=== PATIENT | female | born 1980 | race Two or more races ===

== ENCOUNTER 2016-07-26 03:08 | Emergency (ER) | payer MEDICAID ==
[2016-07-26] MEDS ORDERED: LORazepam 2 MG/ML INJ IVP ONE (03:26)
[2016-07-26 03:33] LABS: % IMMATURE GRANULYOCYTES 0.2 % (0.0-1.1); ABSOLUTE IMMATURE GRANULOCYTES 0.02 10^3/uL (0.00-0.10); ADD DIFF? NO; ADD MORPH? NO; ADD SCAN? NO; ATYPICAL LYMPHOCYTE FLAG 20 (0-99); FRAGMENT RBC FLAG 0 (0-99); HEMATOCRIT 44.3 % (38.0-47.0); HEMOGLOBIN 14.8 g/dL (12.6-16.3); LEFT SHIFT FLG 0 (0-99); LIPEMIA HEMOLYSIS FLAG 80 (0-99); MEAN CELL HEMOGLOBIN 27.4 pg (27.9-34.1); MEAN CELL HEMOGLOBIN CONCENTR. 33.4 g/dL (32.4-36.7); MEAN PLATELET VOLUME 10.7 fL (8.7-11.7); PLATELET CLUMPS FLAG 10 (0-99); PLATELET COUNT 341 10^3/uL (150-400); RED CELL DISTRIBUTION WIDTH 14.1 % (11.5-15.2)
[2016-07-26 03:40] LABS: ANION GAP 15 mEq/L (8-16); CALCIUM 9.8 mg/dL (8.5-10.4); CARBON DIOXIDE 23 mEq/l (22-31); CHLORIDE 103 mEq/L (97-110); CREATININE 0.8 mg/dL (0.6-1.0); GLOMERULAR FILTRATION RATE > 60; GLUCOSE 91 mg/dL (70-100); POTASSIUM 4.5 mEq/L (3.5-5.2); SODIUM 141 mEq/L (134-144)
[2016-07-26] MEDS ORDERED: NS 1,000 ML IV ONE (03:40)
[2016-07-26 03:46] LABS: COLOR COLORLESS; LEUKOCYTE ESTERASE,URINE NEGATIVE (NEGATIVE); NITRITE,URINE NEGATIVE (NEGATIVE)
--- NOTE | 2016-07-26 04:17 | EDPHY ---
HPI/HX/ROS/PE/MDM Narrative: Chief complaint: Weakness , lightheadedness and malaise HPI: 35-year-old woman presenting with worsening generalized malaise, lightheadedness and nausea. Symptoms began progressing over the evening. She has had some nausea with vomiting. No diarrhea. No chest pain shortness of breath. No abdominal pain. No fevers or chills. Does have a history of similar episode in the past when she was told she was dehydrated. No recent travel. Does not drink alcohol. No smoking. No drug use. She was given 4 mg of Zofran by EMS with some relief. She is not vertiginous. ROS: 10 point Review of Systems is negative except as noted in the HPI. Physical exam: Gen: Awake, Alert, No Distress HEENT: Nose: no rhinorrhea Eyes: PERRLA, EOMI, she has no nystagmus. She has a negative Otis-Hallpike. Mouth: Moist mucosa Neck: Supple, no JVD Chest: nontender, lungs clear to auscultation Heart: S1, S2 normal, no murmur Abd: Soft, non-tender, no guarding Back: no CVA tenderness, no midline tenderness Ext: no edema, non-tender Skin: no rash Neuro: CN II-XII intact, Sensation grossly intact, Strength 5/5 in bilateral upper and lower extremities ED Course: 35-year-old with weakness dehydration and malaise. She has no focal neurologic findings. She has no nystagmus. She has not have any vertiginous symptoms. She is improved with some fluids and Zofran. Will give her little bit of Ativan for her nausea and check bloods and urine. - Data Points Laboratory Results: Laboratory Results 07/26/16 03:00 07/26/16 03:00 07/26/16 07/26/16 03:25 03:00 WBC 8.72 10^3/uL (3.80-9.50) RBC 5.40 H 10^6/uL (4.18-5.33) Hgb 14.8 g/dL (12.6-16.3) Hct 44.3 % (38.0-47.0) MCV 82.0 fL (81.5-99.8) MCH 27.4 L pg (27.9-34.1) MCHC 33.4 g/dL (32.4-36.7) RDW 14.1 % (11.5-15.2) Plt Count 341 10^3/uL (150-400) MPV 10.7 fL (8.7-11.7) Neut % (Auto) 33.3 L % (39.3-74.2) Lymph % (Auto) 57.2 H % (15.0-45.0) [place] % (Auto) 5.6 % (4.5-13.0) Eos % (Auto) 3.0 % (0.6-7.6) Baso % (Auto) 0.7 % (0.3-1.7) Nucleat RBC Rel Count 0.0 % (0.0-0.2) Absolute Neuts (auto) 2.90 10^3/uL (1.70-6.50) Absolute Lymphs (auto) 4.99 H 10^3/uL (1.00-3.00) Absolute Monos (auto) 0.49 10^3/uL (0.30-0.80) Absolute Eos (auto) 0.26 10^3/uL (0.03-0.40) Absolute Basos (auto) 0.06 10^3/uL (0.02-0.10) Absolute Nucleated RBC 0.00 10^3/uL (0-0.01) Immature Gran % 0.2 % (0.0-1.1) Immature Gran # 0.02 10^3/uL (0.00-0.10) Sodium 141 mEq/L (134-144) Potassium 4.5 mEq/L (3.5-5.2) Chloride 103 mEq/L (97-110) Carbon Dioxide 23 mEq/l (22-31) Anion Gap 15 mEq/L (8-16) BUN 11 mg/dL (7-23) Creatinine 0.8 mg/dL (0.6-1.0) Estimated GFR > 60 Glucose 91 mg/dL (70-100) Calcium 9.8 mg/dL (8.5-10.4) Urine Color COLORLESS Urine Appearance CLEAR Urine pH 7.0 (5.0-7.5) Ur Specific Albin 1.002 (1.002-1.030) Urine Protein NEGATIVE (NEGATIVE) Urine Ketones TRACE H (NEGATIVE) Urine Blood NEGATIVE (NEGATIVE) Urine Nitrate NEGATIVE (NEGATIVE) Urine Bilirubin NEGATIVE (NEGATIVE) Urine Urobilinogen NEGATIVE EU (0.2-1.0) Ur Leukocyte Esterase NEGATIVE (NEGATIVE) Urine Glucose NEGATIVE (NEGATIVE) Urine Test NEGATIVE Medications Given: Discontinued Medications Sodium Chloride (Ns) 1,000 mls @ 0 mls/hr IV ONCE ONE PRN Reason: Wide Open Stop: 07/26/16 03:41 Last Admin: 07/26/16 03:49 Dose: 1,000 mls Lorazepam (Ativan Injection) 1 mg IVP EDNOW ONE Stop: 07/26/16 03:27 Last Admin: 07/26/16 03:41 Dose: 1 mg General Time Seen by Provider: 07/26/16 03:23 Initial Vital Signs: Initial Vital Signs Temperature (C) 36.6 C 07/26/16 03:19 Heart Rate 72 07/26/16 03:19 Respiratory Rate 16 07/26/16 03:19 Blood Pressure 111/87 H 07/26/16 03:19 O2 Sat (%) 100 07/26/16 03:19 O2 Delivery Mode Room Air O2 (L/minute) 2 Allergies/Adverse Reactions: Penicillins Allergy (Verified 07/26/16 03:19) Home Medications: Medication Instructions Recorded NK [No Known Home Meds] 06/15/15 Departure - Departure Disposition: Home, Routine, Self-Care Clinical Impression: Viral illness, Dehydration Condition: Good Instructions: Dehydration (ED), Viral Syndrome (ED) Additional Instructions: Follow up with primary care doctor in 2-3 days for re-evaluation. Return to the emergency department for increasing fevers, chills, nausea, vomiting, chest pain, shortness breath, or any other concerns. Referrals: [place],. [Primary Care Provider] - As per Instructions
[2016-07-26 06:38] VITALS: BP 114/80; PULSE 70; RESP 20; TEMP 97.7; O2SAT 99
== END 2016-07-26 06:38 | disposition home or self-care (01) ==
LOC: EDUNIT#
DX: B34.9 Viral infection, unspecified (principal); E86.0 Dehydration
CPT/HCPCS: 96374

== ENCOUNTER 2016-10-05 00:52 | Emergency (ER) | payer MEDICAID ==
[2016-10-05 00:58] VITALS: TEMP 97.9
--- NOTE | 2016-10-05 01:30 | EDPHY ---
H & P Stated Complaint: nausea, l facial pain Time Seen by Provider: 10/05/16 01:17 HPI/ROS: Chief Complaint: Headache, nausea, dizzy HPI: 35-year-old woman past medical history migraine headaches presenting with a headache which started gradually. Pain is on the left side of her head behind her left eye is similar to her prior migraine headaches. This is a bit different because you typically her migraines go away with ibuprofen and this 1 has not. She also she typically gets an aura with her migraines and she did not this time. This is not the worst headache of her life. It is currently about an 8/10. Some nausea no vomiting. Id was feeling dizzy earlier but this gotten better. She denies any photophobia at this time. No neck pain or stiffness. No recent illness. ROS: 10 point Review of Systems is negative except as noted in the HPI. PMH: Migraine headaches, GERD Medications: Omeprazole Allergies: Penicillin Social History: No smoking, no alcohol, no recreational drug use Family History: non-contributory Physical Exam: Gen: Awake, Alert, No Distress HEENT: Nose: no rhinorrhea Eyes: PERRLA, EOMI Mouth: Moist mucosa Neck: Supple, no JVD Chest: nontender, lungs clear to auscultation Heart: S1, S2 normal, no murmur Abd: Soft, non-tender, no guarding Back: no CVA tenderness, no midline tenderness Ext: no edema, non-tender Skin: no rash Neuro: CN II-XII intact, Sensation grossly intact, Strength 5/5 in bilateral upper and lower extremities - Personal History LMP (Females 10-55): Now Current Tetanus Diphtheria and Acellular Pertussis (TDAP): Unsure - Medical/Surgical History Hx Asthma: No Hx Chronic Respiratory Disease: No Hx Diabetes: No Hx Cardiac Disease: No Hx Renal Disease: No Hx Cirrhosis: No Hx Alcoholism: No Hx HIV/AIDS: No Hx Splenectomy or Spleen Trauma: No Other PMH: anxiety attacks. seizure? gi issues - Social History Smoking Status: Former smoker Constitutional: Initial Vital Signs Temperature (C) 36.6 C 10/05/16 00:56 Heart Rate 83 10/05/16 00:56 Respiratory Rate 16 10/05/16 00:56 Blood Pressure 123/95 H 10/05/16 00:56 O2 Sat (%) 99 10/05/16 00:56 O2 Delivery Mode Room Air Allergies/Adverse Reactions: Penicillins Allergy (Verified 07/26/16 03:19) Home Medications: Medication Instructions Recorded NK [No Known Home Meds] 06/15/15 Medical Decision Making ED Course/Re-evaluation: Patient states her headache is significantly improved. She is asking to go home. - Data Points Medications Given: Discontinued Medications Dexamethasone (Decadron Injection) 10 mg IVP EDNOW ONE Stop: 10/05/16 01:34 Last Admin: 10/05/16 01:50 Dose: 10 mg Diphenhydramine HCl (Benadryl Injection) 25 mg IVP EDNOW ONE Stop: 10/05/16 01:34 Last Admin: 10/05/16 01:54 Dose: 25 mg Haloperidol Lactate (Haldol Injection) 2.5 mg IVP EDNOW ONE Stop: 10/05/16 01:34 Last Admin: 10/05/16 01:57 Dose: 2.5 mg Departure - Departure Disposition: Home, Routine, Self-Care Clinical Impression: Migraine headache Condition: Good Instructions: Migraine Headache (ED) Additional Instructions: Return to the emergency depart for increasing headache, controlled nausea or vomiting, fevers, chills, or any other concerns. Follow up with primary care physician in 3-4 days if you're still having headaches. Referrals: [facility] [Other] - As per Instructions
[2016-10-05] MEDS ORDERED: DEXAMETHASONE 10 MG/ML VIAL IVP ONE (01:33)
[2016-10-05] MEDS ORDERED: HALOPERIDOL LACT 5 MG/ML INJ IVP ONE (01:33)
[2016-10-05 02:27] VITALS: BP 116/77; PULSE 88; RESP 14; O2SAT 97
== END 2016-10-05 02:31 | disposition home or self-care (01) ==
DX: G43.909 Migraine, unspecified, not intractable, without status migrainosus (principal); Z87.891 Personal history of nicotine dependence
CPT/HCPCS: 96374; J1200

== ENCOUNTER 2017-07-15 10:27 | Emergency (ER) | payer MEDICAID ==
[2017-07-15 10:32] VITALS: TEMP 98.1
--- NOTE | 2017-07-15 10:41 | EDPHY ---
H & P Stated Complaint: migraine Time Seen by Provider: 07/15/17 10:40 HPI/ROS: HPI: This is a 36-year-old female who presents with Chief Complaint: Migraine Location: Head Quality: Migraine Duration: 45 min prior to arrival Signs and Symptoms:+ photophobia, + noise sensitivity, + nausea, no vomiting, no neck stiffness, no fever, no visual changes, +aura Timing: Sudden, constant Severity: Moderate Context: Patient reports that she has a history of migraine headaches that was diagnosed at age 7. Her triggers tend to be stress. Patient presents with complaints of right sikhism/forehead headache that is described as moderate in nature, not worst ever, constant, nonradiating that started upon waking the up this morning. Her last menstrual period was 1 week ago. She reports that she felt fine yesterday and was having a normal day. She has not eaten or drank anything today. She denies fever/neck stiffness/ear pain/sinus pressure/nasal congestion. She reports that this headache feels like her typical migraines. She has tried no [id number] medications. She is not on any basal or abortive medications for migraines. Modifying Factors: None Comment: ROS: see HPI Constitutional: No fever, no chills, no weight loss Eyes: No blurred vision Respiratory: No shortness of breath, no cough Cardiovascular: No chest pain Gastrointestinal: No nausea, no vomiting, no diarrhea Genitourinary: No dysuria Extremities: No myalgias Neurologic: No weakness, no numbness Skin: No rashes Hematologic: No bruising, no bleeding MEDICAL/SURGICAL/SOCIAL HISTORY: Medical history: anxiety attacks. seizure? GERD, migraines Surgical history: Denies Social history: Employed. CONSTITUTIONAL: Nontoxic appearing female, awake and alert, no obvious distress HEENT: Atraumatic and normocephalic, PERRL, EOMI. No nystagmus. Tympanic membranes clear. Oropharynx clear, no exudate and moist pink mucosa. Airway patent. No lymphadenopathy. No meningismus. Cardiovascular: Normal S1/S2, regular rate, regular rhythm, without murmur rub or gallop. PULMONARY/CHEST: Symmetrical and nontender. Clear to auscultation bilaterally. Good air movement. No accessory muscle usage. ABDOMEN: Soft, nondistended, nontender, no rebound, no guarding, no peritoneal signs, no masses or organomegaly. No CVAT. EXTREMITIES: 2/2 pulses, strength 5/5, no deformities, no clubbing, no cyanosis or edema. NEUROLOGICAL: no focal neuro deficits. GCS 15. SKIN: Warm and dry, no erythema. no rash. Good capillary refill. Source: Patient, Family Exam Limitations: No limitations - Personal History Current Tetanus/Diphtheria Vaccine: Unsure Current Tetanus Diphtheria and Acellular Pertussis (TDAP): Unsure - Medical/Surgical History Hx Asthma: No Hx Chronic Respiratory Disease: No Hx Diabetes: No Hx Cardiac Disease: No Hx Renal Disease: No Hx Cirrhosis: No Hx Alcoholism: No Hx HIV/AIDS: No Hx Splenectomy or Spleen Trauma: No Other PMH: anxiety attacks. seizure? gi issues. migraines - Social History Smoking Status: Former smoker Constitutional: Initial Vital Signs Temperature (C) 36.7 C 07/15/17 10:30 Heart Rate 90 07/15/17 10:30 Respiratory Rate 17 07/15/17 10:30 Blood Pressure 125/88 H 07/15/17 10:30 O2 Sat (%) 99 07/15/17 10:30 O2 Delivery Mode Room Air Allergies/Adverse Reactions: Penicillins Allergy (Verified 07/15/17 10:30) Home Medications: Medication Instructions Recorded Acet/Caffeine/Buta Fioricet 1 each PO Q6 PRN #12 tab 07/15/17 [Fioricet (*)] Pepcid 07/15/17 Medical Decision Making ED Course/Re-evaluation: Vital signs reviewed upon arrival and no systemic signs. Migraine is typical for patient. No indication for CT imaging of head. Given 1 L normal saline, IV Decadron, IV Haldol, IV Benadryl complete relief of symptoms. Patient monitored in the emergency room for 2 hr and asked to be discharged home as she was feeling better. 1225: Reassessed patient who reports that headache has substantially decreased but she still has an aura. Given IV Benadryl and IV Toradol. 1325: Reassessed patient who reports that all symptoms have resolved. Requesting to be discharged home This patient was seen under the supervision of my secondary supervising physician. I evaluated care for this patient independently. Discussed this patient with Dr. Harden who did not see the patient. Differential Diagnosis: Headache including but not limited to subarachnoid hemorrhage, migraine headache , tension headache and infectious causes such as meningitis, pharyngitis and sinusitis. - Data Points Medications Given: Discontinued Medications Dexamethasone (Decadron Injection) 10 mg IVP EDNOW ONE Stop: 07/15/17 10:47 Last Admin: 07/15/17 10:54 Dose: 10 mg Diphenhydramine HCl (Benadryl Injection) 25 mg IVP EDNOW ONE Stop: 07/15/17 10:47 Last Admin: 07/15/17 10:54 Dose: 25 mg Diphenhydramine HCl (Benadryl Injection) 50 mg IVP EDNOW ONE Stop: 07/15/17 12:29 Last Admin: 07/15/17 13:03 Dose: Not Given Haloperidol Lactate (Haldol Injection) 2.5 mg IVP EDNOW ONE Stop: 07/15/17 10:48 Last Admin: 07/15/17 10:54 Dose: 2.5 mg Sodium Chloride (Ns) 1,000 mls @ 0 mls/hr IV EDNOW ONE; Wide Open PRN Reason: Protocol Stop: 07/15/17 10:47 Last Admin: 07/15/17 10:53 Dose: 1,000 mls Ketorolac Tromethamine (Toradol) 30 mg IVP EDNOW ONE Stop: 07/15/17 12:29 Last Admin: 07/15/17 13:04 Dose: Not Given Departure - Departure Disposition: Home, Routine, Self-Care Clinical Impression: Migraine headache with aura Qualifiers: Status migrainosus presence: without status migrainosus Intractability: not intractable Qualified Code(s): G43.109 - Migraine with aura, not intractable, without status migrainosus Condition: Good Instructions: Migraine Headache (ED) Additional Instructions: Please rest as much as possible today and drink plenty of fluids until you are feeling better. Please establish care with Neurology to discuss migraine diagnosis and medications. Referrals: [facility] [Other] - As per Instructions Isaac Dash MD [Medical Doctor] - As per Instructions Prescriptions: Acet/Caffeine/Buta Fioricet [Fioricet (*)] 1 each PO Q6 PRN #12 tab PRN Reason: Headache
[2017-07-15] MEDS ORDERED: NS 1,000 ML IV ONE (10:46)
[2017-07-15] MEDS ORDERED: DEXAMETHASONE 10 MG/ML VIAL IVP ONE (10:46)
[2017-07-15] MEDS ORDERED: HALOPERIDOL LACT 5 MG/ML INJ IVP ONE (10:47)
[2017-07-15 12:17] VITALS: RESP 16; O2SAT 97
[2017-07-15] MEDS ORDERED: KETOROLAC 30 MG/1 ML SDV IVP ONE (12:28)
[2017-07-15 13:11] VITALS: BP 141/89; PULSE 90
== END 2017-07-15 13:09 | disposition home or self-care (01) ==
DX: G43.109 Migraine with aura, not intractable, without status migrainosus (principal); E86.9 Volume depletion, unspecified; Z87.891 Personal history of nicotine dependence
CPT/HCPCS: 96374; J1100; J1200; J1630

== ENCOUNTER 2017-09-01 12:49 | Emergency (ER) | payer MEDICAID ==
[2017-09-01 12:59] VITALS: RESP 16; TEMP 97.9
[2017-09-01] MEDS ORDERED: NS 1,000 ML IV ONE (13:16)
--- NOTE | 2017-09-01 13:26 | EDPHY ---
H & P Stated Complaint: 10 days diarrhea/now bloody and n/v Time Seen by Provider: 09/01/17 13:15 HPI/ROS: CHIEF COMPLAINT: Diarrhea , abdominal cramping times 10 days HISTORY OF PRESENT ILLNESS: 36-year-old female generally healthy, no history of abdominal surgeries, no history of international travel or untreated water sources, history of recent antibiotics complaining of 10 days of intermittent abdominal cramping, diarrhea with reddish appearance in the past few days. She notes that when she eats something she will shortly thereafter develop diarrhea. No vomiting. No chest pain. No back or flank pain. No fever no chills. PRIMARY CARE PROVIDER:[facility] REVIEW OF SYSTEMS: A ten point review of systems was performed and is negative with the exception of the items mentioned in the HPI PAST MEDICAL & SURGICAL HISTORY: no history of abdominal surgeries SOCIAL HISTORY:Nonsmoker PHYSICAL EXAM (Prior to examination, patient consented to physical exam, hands were washed and my usual and customary physical exam procedures followed) 1) GENERAL: Well-developed, well-nourished, alert and oriented. Appears to be in no acute distress. 2) HEAD: Normocephalic, atraumatic 3) HEENT: Pupils equal, round, reactive to light bilaterally. Sclera anicteric. Nasopharynx, oropharynx, clear, no lesions. Dry mucous membranes Ears bilaterally with normal tympanic membranes. 4) NECK: Full range of motion, no meningeal signs. 5) LUNGS: Clear auscultation bilaterally, no wheezes, no rhonchi, no retractions. 6) HEART: Regular rate and rhythm, no murmur, no heave, no gallop. 7) ABDOMEN: No guarding, no rebound, no focal tenderness, negative McBurney's, negative Sampson's, negative Rovsing's, negative peritoneal sign, 8) MUSCULOSKELETAL: Moving all extremities, no focal areas of tenderness, no obvious trauma. No peripheral edema or discoloration. 9) BACK: No CVA tenderness, no midline vertebral tenderness, no fluctuance, no step-off, no obvious trauma, no visual or palpable abnormality. 10) SKIN: No rash, no petechiae. 11) Psychiatric: Patient is oriented X 3, there is no agitation. DIFFERENTIAL DIAGNOSIS: In no particular include but limited to infectious diarrhea, functional diarrhea, acute appendicitis, GI bleed - Personal History LMP (Females 10-55): 1-7 Days Ago Current Tetanus/Diphtheria Vaccine: Unsure - Medical/Surgical History Hx Asthma: No Hx Chronic Respiratory Disease: No Hx Diabetes: No Hx Cardiac Disease: No Hx Renal Disease: No Hx Cirrhosis: No Hx Alcoholism: No Hx HIV/AIDS: No Hx Splenectomy or Spleen Trauma: No Other PMH: anxiety attacks. seizure? gi issues. migraines - Social History Smoking Status: Former smoker Constitutional: Initial Vital Signs Temperature (C) 36.6 C 09/01/17 12:56 Heart Rate 88 09/01/17 12:56 Respiratory Rate 16 09/01/17 12:56 Blood Pressure 99/87 H 09/01/17 12:56 O2 Sat (%) 98 09/01/17 12:56 O2 Delivery Mode Room Air Allergies/Adverse Reactions: Penicillins Allergy (Verified 09/01/17 12:55) Home Medications: Medication Instructions Recorded Acet/Caffeine/Buta Fioricet 1 each PO Q6 PRN #12 tab 07/15/17 [Fioricet (*)] Pepcid 07/15/17 Medical Decision Making ED Course/Re-evaluation: 3:00 p.m.: Patient noted to have elevated LFTs. Informs me at this time that when she was a child she had hepatitis a. . Hepatitis panel will be added and this will need to be followed up by her PCP at the [facility]. 3:13 p.m.: Patient able to provide a stool sample which was sent to the lab at this time. I re-evaluated the patient at this time, abdomen is soft no guarding no rebound. Doubt acute surgical abdominal pathology. 4:14 p.m.: Patient was re-evaluated. Her GI pathogen panel was pending. Occult blood feces is positive. GI pathogen panel is pending , informed laboratory that this will take several more hours. I re-examined her abdomen which is soft no guarding no rebound. At this time I think that acute surgical abdominal pathology acute appendicitis, acute cholecystitis, less than likely in this patient. I do not think that imaging studies are indicated at this time. Patient will be discharged. Will hold on antibiotics at this time until GI pathogen study returned. Care of patient under supervision of [secondary] supervising physician Dr Ley with whom I discussed care.. - Data Points Laboratory Results: Laboratory Results 09/01/17 13:20 09/01/17 13:20 09/01/17 09/01/17 09/01/17 15:10 14:02 13:20 WBC RBC Hgb Hct MCV MCH MCHC RDW Plt Count MPV Neut % (Auto) Lymph % (Auto) [place] % (Auto) Eos % (Auto) Baso % (Auto) Nucleat RBC Rel Count Absolute Neuts (auto) Absolute Lymphs (auto) Absolute Monos (auto) Absolute Eos (auto) Absolute Basos (auto) Absolute Nucleated RBC Immature Gran % Immature Gran # Sodium Potassium Chloride Carbon Dioxide Anion Gap BUN Creatinine Estimated GFR Glucose Calcium Total Bilirubin Conjugated Bilirubin Unconjugated Bilirubin AST ALT Alkaline Phosphatase Total Protein Albumin Lipase Beta HCG, Qual NEGATIVE Stool Occult Bld Scrn POSITIVE H (NEGATIVE) Hepatitis A IgM Ab Pending Hep Bs Antigen Pending Hep B Core IgM Ab Pending Hepatitis C Antibody Pending 09/01/17 09/01/17 13:20 13:20 WBC 7.62 10^3/uL 10^3/uL (3.80-9.50) RBC 5.12 10^6/uL 10^6/uL (4.18-5.33) Hgb 12.8 g/dL g/dL (12.6-16.3) Hct 39.8 % % (38.0-47.0) MCV 77.7 fL L fL (81.5-99.8) MCH 25.0 pg L pg (27.9-34.1) MCHC 32.2 g/dL L g/dL (32.4-36.7) RDW 15.8 % H % (11.5-15.2) Plt Count 432 10^3/uL H 10^3/uL (150-400) MPV 9.9 fL fL (8.7-11.7) Neut % (Auto) 54.7 % % (39.3-74.2) Lymph % (Auto) 34.1 % % (15.0-45.0) [place] % (Auto) 7.6 % % (4.5-13.0) Eos % (Auto) 2.4 % % (0.6-7.6) Baso % (Auto) 0.8 % % (0.3-1.7) Nucleat RBC Rel Count 0.0 % % (0.0-0.2) Absolute Neuts (auto) 4.17 10^3/uL 10^3/uL (1.70-6.50) Absolute Lymphs (auto) 2.60 10^3/uL 10^3/uL (1.00-3.00) Absolute Monos (auto) 0.58 10^3/uL 10^3/uL (0.30-0.80) Absolute Eos (auto) 0.18 10^3/uL 10^3/uL (0.03-0.40) Absolute Basos (auto) 0.06 10^3/uL 10^3/uL (0.02-0.10) Absolute Nucleated RBC 0.00 10^3/uL 10^3/uL (0-0.01) Immature Gran % 0.4 % % (0.0-1.1) Immature Gran # 0.03 10^3/uL 10^3/uL (0.00-0.10) Sodium 138 mEq/L mEq/L (135-145) Potassium 4.1 mEq/L mEq/L (3.5-5.2) Chloride 106 mEq/L mEq/L (97-110) Carbon Dioxide 22 mEq/l mEq/l (22-31) Anion Gap 10 mEq/L mEq/L (8-16) BUN 6 mg/dL L mg/dL (7-23) Creatinine 0.8 mg/dL mg/dL (0.6-1.0) Estimated GFR > 60 Glucose 89 mg/dL mg/dL (70-100) Calcium 9.4 mg/dL mg/dL (8.5-10.4) Total Bilirubin 0.6 mg/dL mg/dL (0.1-1.4) Conjugated Bilirubin 0.2 mg/dL mg/dL (0.0-0.5) Unconjugated Bilirubin 0.4 mg/dL mg/dL (0.0-1.1) AST 128 IU/L H IU/L (14-46) ALT 188 IU/L H IU/L (9-52) Alkaline Phosphatase 364 IU/L H IU/L (38-126) Total Protein 7.7 g/dL g/dL (6.3-8.2) Albumin 4.3 g/dL g/dL (3.5-5.0) Lipase 105 IU/L IU/L (23-300) Beta HCG, Qual Stool Occult Bld Scrn Hepatitis A IgM Ab Hep Bs Antigen Hep B Core IgM Ab Hepatitis C Antibody Medications Given: Discontinued Medications Sodium Chloride (Ns) 1,000 mls @ 0 mls/hr IV ONCE ONE PRN Reason: Wide Open Stop: 09/01/17 13:17 Last Admin: 09/01/17 13:26 Dose: 1,000 mls Departure - Departure Disposition: Home, Routine, Self-Care Clinical Impression: Volume depletion Diarrhea Qualifiers: Diarrhea type: unspecified type Qualified Code(s): R19.7 - Diarrhea, unspecified Condition: Good Instructions: Acute Diarrhea (ED) Additional Instructions: Seek immediate medical attention if you develop new or worsening symptoms, if you develop fevers, chills, inability to tolerate oral intake or any other symptoms that concerns you. Referrals: Earnestine Berry PA [Primary Care Provider] - 09/03/17
[2017-09-01 13:30] LABS: PLATELET COUNT 432 10^3/uL (150-400)
[2017-09-01 16:52] VITALS: BP 133/87; PULSE 87; O2SAT 99
[2017-09-03 02:45] LABS: HEPATITIS B SURFACE ANTIGEN NEGATIVE (NEGATIVE)
[2017-09-03 02:52] LABS: HEPATITIS A ANTIBODY IGM (BCH) NEGATIVE (NEGATIVE); HEPATITIS B CORE AB IGM NEGATIVE (NEGATIVE)
[2017-09-03 03:03] LABS: HEPATITIS C ANTIBODY TOTAL NEGATIVE (NEGATIVE)
== END 2017-09-01 16:52 | disposition home or self-care (01) ==
DX: R19.7 Diarrhea, unspecified (principal); E86.9 Volume depletion, unspecified; Z87.891 Personal history of nicotine dependence
CPT/HCPCS: G0472

== ENCOUNTER 2017-12-15 19:56 | Emergency (ER) | payer MEDICAID ==
[2017-12-15] MEDS ORDERED: ONDANSETRON 4 MG/2 ML VIAL ONE (20:09)
[2017-12-15] MEDS ORDERED: HYDROmorphONE/DILAUDID 1 MG/ML INJ ONE (20:09)
[2017-12-15] MEDS ORDERED: NS 1,000 ML IV ONE (20:12)
[2017-12-15] MEDS ORDERED: HYDROmorphONE/DILAUDID 1 MG/ML INJ IVP ONE ×2 (20:12→20:15)
[2017-12-15] MEDS ORDERED: ONDANSETRON 4 MG/2 ML VIAL IVP ONE ×2 (20:17→21:58)
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
[2017-12-15] MEDS ORDERED: PROPOFOL 200 MG/20 ML VIAL ONE (20:31)
[2017-12-15] MEDS ORDERED: KETAMINE 200 MG/20 ML VIAL ONE (20:31)
[2017-12-15] MEDS ORDERED: OXYCODONE/APAP 5/325MG PREPACK#4 BTL TAKEHOME ONE (21:07)
[2017-12-15] MEDS ORDERED: HYDROmorphONE/DILAUDID 2 MG/ML INJ IVP ONE (21:28)
[2017-12-15 22:09] VITALS: BP 122/85
== END 2017-12-15 22:23 | disposition home or self-care (01) ==
PROC: 0HDLXZZ Extraction of Left Lower Leg Skin, External Approach (ICD-10-PCS; principal; 2017-12-15)
DX: T21.15XA Burn of first degree of buttock, initial encounter (principal); T25.222A Burn of second degree of left foot, initial encounter; T31.0 Burns involving less than 10% of body surface; E86.9 Volume depletion, unspecified; Z87.891 Personal history of nicotine dependence; X10.0XXA Contact with hot drinks, initial encounter
CPT/HCPCS: 96374; J1170; J2405; J2704

== ENCOUNTER 2017-12-31 12:24 | Emergency (ER) | payer MEDICAID ==
[2017-12-31] MEDS ORDERED: fentaNYL 100 MCG/2 ML INJ IVP ONE (13:18)
[2017-12-31] MEDS ORDERED: KETOROLAC 30 MG/1 ML SDV IVP ONE (13:18)
[2017-12-31] MEDS ORDERED: LORazepam 2 MG/ML INJ IVP ONE (13:18)
[2017-12-31] MEDS ORDERED: NS 1,000 ML IV ONE (13:18)
[2017-12-31] MEDS ORDERED: DEXAMETHASONE 10 MG/ML VIAL IVP ONE (13:18)
[2017-12-31] MEDS ORDERED: ONDANSETRON 4 MG/2 ML VIAL IVP ONE (13:18)
--- NOTE | 2017-12-31 13:22 | EDPHY ---
H & P Time Seen by Provider: 12/31/17 13:15 HPI/ROS: CHIEF COMPLAINT: "Migraine" HISTORY OF PRESENT ILLNESS: The patient is a 37-year-old female with a history of migraines who presents emergency department with a typical migraine headache starting at 11:35 a.m. This morning. She took her home medication with no relief. She continues to complain of a frontal headache. She has had nausea but no vomiting. No weakness or numbness. Patient did have visual change prior to the onset of her headache. This is typical for migraine headache. She has had no neck pain. No recent falls or trauma. No fevers or chills. REVIEW OF SYSTEMS: My complete review of systems is negative except as mentioned in the HPI. Past Medical/Surgical History: Includes migraine, seizure, anxiety Social History: The patient does not smoke Smoking Status: Former smoker Physical Exam: Vitals noted. Afebrile GENERAL: Mild acute distress, alert. Anxious HEENT: Eyes normal to inspection, normal pharynx, no signs of dehydration. NECK: [No thyromegaly, no lymphadenopathy, supple. RESPIRATORY: Clear to auscultation bilaterally, no rales, rhonchi or wheezing. CVS: Regular rate and rhythm, no rubs, murmurs, or gallops. ABDOMEN: Soft, nontender, nondistended, no organomegaly. BACK: Normal to inspection, no CVA tenderness. SKIN: Normal color, no rash, warm, dry. No pallor. EXTREMITIES: No pedal edema, no calf tenderness, no Homans sign or cords, no joint swelling. NEURO/PSYCH: Higher functions: Alert and Oriented x3. Normal speech and cognition. Anxious. Cranial nerves: Normal as tested. Cerebellar: Normal as tested. Good finger to nose, good [id number], normal gait. Peripheral exam: Normal motor exam. Normal sensation. Normal reflexes. Constitutional: Initial Vital Signs Temperature (C) 37 C 12/31/17 12:25 Heart Rate 80 12/31/17 12:25 Respiratory Rate 16 12/31/17 12:25 Blood Pressure 144/88 H 12/31/17 12:25 O2 Sat (%) 100 12/31/17 12:25 O2 Delivery Mode Room Air Allergies/Adverse Reactions: Penicillins Allergy (Verified 09/01/17 12:55) Home Medications: Medication Instructions Recorded Citalopram 12/15/17 Omeprazole 12/15/17 oxyCODONE/APAP 5/325 [Percocet 1 - 2 tab PO Q4H PRN #20 tab 12/15/17 5/325 (*)] Medical Decision Making ED Course/Re-evaluation: In the emergency department I discussed possible etiologies with the patient. I answered all her questions. IV was placed. Patient was given Decadron 10 mg IV, Zofran 4 mg IV, fentanyl 50 mcg IV and Toradol 30 mg IV for her headache and nausea. I do not feel the patient needs imaging at this time. Patient reports that she had a negative CT and MRI previously during workup for migraine. Recheck patient numerous occasions. On repeat exam she had a normal neuro exam. No focal deficits. 1445: Patient is doing well. Her headache has improved. No focal deficits. Differential Diagnosis: My differential includes but is not limited to headache, migraine, subarachnoid hemorrhage, subdural hematoma, epidural hematoma, ischemic CVA, hemorrhagic CVA , dissection - Data Points Medications Given: Discontinued Medications Dexamethasone (Decadron Injection) 10 mg IVP EDNOW ONE Stop: 12/31/17 13:19 Last Admin: 12/31/17 13:26 Dose: 10 mg Fentanyl (Sublimaze) 50 mcg IVP EDNOW ONE Stop: 12/31/17 13:19 Last Admin: 12/31/17 13:26 Dose: 50 mcg Sodium Chloride (Ns) 1,000 mls @ 0 mls/hr IV ONCE ONE; Wide Open PRN Reason: Protocol Stop: 12/31/17 13:19 Last Admin: 12/31/17 13:24 Dose: 1,000 mls Ketorolac Tromethamine (Toradol) 30 mg IVP EDNOW ONE Stop: 12/31/17 13:19 Last Admin: 12/31/17 13:25 Dose: 30 mg Lorazepam (Ativan Injection) 1 mg IVP EDNOW ONE Stop: 12/31/17 13:19 Last Admin: 12/31/17 13:26 Dose: 1 mg Ondansetron HCl (Zofran) 4 mg IVP EDNOW ONE Stop: 12/31/17 13:19 Last Admin: 12/31/17 13:25 Dose: 4 mg Departure - Departure Disposition: Home, Routine, Self-Care Clinical Impression: Headache Qualifiers: Headache type: unspecified Headache chronicity pattern: acute headache Intractability: not intractable Qualified Code(s): R51 - Headache Condition: Good Instructions: Acute Headache (ED) Additional Instructions: Return with increasing headache, weakness, numbness, fever, or any other concerns. Referrals: James Norris DO [Medical Doctor] - 5-7 days, call for appt.
[2017-12-31 16:24] VITALS: BP 127/93
== END 2017-12-31 16:23 | disposition home or self-care (01) ==
LOC: EDUNIT#
DX: R51 Headache (principal); E86.9 Volume depletion, unspecified; Z87.891 Personal history of nicotine dependence
CPT/HCPCS: 96374; J1100; J1885; J2060; J2405; J3010

== ENCOUNTER 2018-04-17 15:43 | Emergency (ER) | payer MEDICAID ==
--- NOTE | 2018-04-17 15:50 | EDPHY ---
H & P Time Seen by Provider: 04/17/18 15:49 HPI/ROS: HPI: This is a 37-year-old female who presents with Chief Complaint: Location: Quality: Duration: Signs and Symptoms: no fever, no nausea, no vomiting, no hematemesis, no blood in stool, no abdominal bloating, no diarrhea, no back pain, no urinary symptoms , no testicular/groin pain, no indigestion, no chest pain, no shortness of breath Timing: Severity: Context: Patient presents via EMS with right upper quadrant pain accompanied by cramping since August. She reports that over the last 1 month she has developed right upper quadrant pain. She also complains of daily diarrhea of 2- 3 stools per day. She was seen by her primary care provider in September and referred to Gastroenterology and had a colonoscopy performed at the end of October beginning of November and per patient was"normal." She has an appointment with her yam curer tomorrow for follow-up. She reports that she has been started on Imodium twice a day 1st dose last night and 2nd dose this morning for her daily diarrhea. Patient reports that she had an abdominal ultrasound performed by [facility] on [facility] this morning but is unaware of the results. Patient was given Zofran 4 mg IV and 50 mcg of fentanyl on route by EMS and brought pain down from an 8/10 to a 2/10. Modifying Factors: Imodium Comment: ROS: A comprehensive 10 system review of systems is otherwise negative aside from elements mentioned in the history of present illness. MEDICAL/SURGICAL/SOCIAL HISTORY: Medical history: anxiety attacks. seizure?, GI issues, migraines Surgical history: Denies Social history: Former smoker. Family history noncontributory. CONSTITUTIONAL: Extremely well-appearing [place] female, awake and alert, no obvious distress HEENT: Atraumatic and normocephalic, PERRL, EOMI. Nares patent; no rhinorrhea; no nasal mucosal edema. Tympanic membranes clear. Oropharynx clear, no exudate and moist pink mucosa. Airway patent. No lymphadenopathy. No meningismus. Cardiovascular: Normal S1/S2, regular rate, regular rhythm, without murmur rub or gallop. PULMONARY/CHEST: Symmetrical and nontender. Clear to auscultation bilaterally. Good air movement. No accessory muscle usage. ABDOMEN: Soft, nondistended, moderate right upper quadrant tenderness, no rebound, no guarding, no peritoneal signs, no masses or organomegaly. No CVAT. Bowel sounds hyperactive x4 quadrants. EXTREMITIES: 2/2 pulses, strength 5/5, no deformities, no clubbing, no cyanosis or edema. NEUROLOGICAL: no focal neuro deficits. GCS 15. SKIN: Warm and dry, no erythema. no rash. Good capillary refill. Source: Patient, Old records Exam Limitations: No limitations - Medical/Surgical History Hx Asthma: No Hx Chronic Respiratory Disease: No Hx Diabetes: No Hx Cardiac Disease: No Hx Renal Disease: No Hx Cirrhosis: No Hx Alcoholism: No Hx HIV/AIDS: No Hx Splenectomy or Spleen Trauma: No Other PMH: anxiety attacks. seizure? gi issues. migraines - Social History Smoking Status: Former smoker Constitutional: Initial Vital Signs Temperature (C) 37.1 C 04/17/18 15:43 Heart Rate 95 04/17/18 15:43 Respiratory Rate 16 04/17/18 15:43 Blood Pressure 115/88 H 04/17/18 15:43 O2 Sat (%) 97 04/17/18 15:43 O2 Delivery Mode Room Air Allergies/Adverse Reactions: Penicillins Allergy (Verified 09/01/17 12:55) Home Medications: Medication Instructions Recorded Citalopram 12/15/17 Dicyclomine [Bentyl 20 MG (*)] 20 mg PO QID PRN #28 tab 04/17/18 Lorazepam 04/17/18 Maxalt 04/17/18 Medical Decision Making - Diagnostics Imaging Results: Imaging Impressions Abdomen CT 04/17/18 16:36 Impression: No CT findings for diverticulitis. No CT findings for appendicitis. Possible mild mesenteric adenitis. A 2.4 cm cyst in the left ovary. Results called and discussed with Helen Hope on 04/17/2018, 17:45. ED Course/Re-evaluation: Vital signs reviewed and stable upon arrival. No systemic signs. 1609: Tech called [facility] to obtain abdominal ultrasound report. Laboratory studies, IV fluids 1 L normal saline and p.o. Bentyl, ordered 1623: Labs reviewed. H&H 10.6/35.3, microcytic type. History of same and at baseline. No signs of leukocytosis/KELI/elevated LFTs/electrolyte imbalance/ pancreatitis/. 1636: Obtained ultrasound report that was complete that shows normal abdominal ultrasound including gallbladder that is normal and no signs of cholecystitis. CT abdomen and pelvis scan ordered 1700: Notified by RN that patient requesting pain medications prior to going to [facility]. IV Toradol 15 mg given 1740: Called by radiologist who advised that CT abdomen and pelvis scan is completely unremarkable for any acute intra-abdominal process. Does show left ovarian cyst measuring 2 cm. 1750: Reassessed patient. Long discussion with the patient and her regarding irritable bowel syndrome/disease. Patient already has a follow-up appointment Gastroenterology tomorrow. Will give a prescription for Bentyl interim. This patient was seen under the supervision of my secondary supervising physician. I evaluated care for this patient independently. Discussed this patient with Dr. Soliz. Differential Diagnosis: Abdominal pain including but not limited to appendicitis, cholecystitis, gastritis and urinary tract infection. - Data Points Laboratory Results: Laboratory Results 04/17/18 15:50 04/17/18 15:50 04/17/18 04/17/18 04/17/18 15:50 15:50 15:50 WBC 9.19 10^3/uL 10^3/uL (3.80-9.50) RBC 5.10 10^6/uL 10^6/uL (4.18-5.33) Hgb 10.6 g/dL L g/dL (12.6-16.3) Hct 35.3 % L % (38.0-47.0) MCV 69.2 fL L fL (81.5-99.8) MCH 20.8 pg L pg (27.9-34.1) MCHC 30.0 g/dL L g/dL (32.4-36.7) RDW 17.8 % H % (11.5-15.2) Plt Count 520 10^3/uL H 10^3/uL (150-400) MPV 9.9 fL fL (8.7-11.7) Neut % (Auto) 42.9 % % (39.3-74.2) Lymph % (Auto) 46.0 % H % (15.0-45.0) Beaver % (Auto) 6.5 % % (4.5-13.0) Eos % (Auto) 3.6 % % (0.6-7.6) Baso % (Auto) 0.7 % % (0.3-1.7) Nucleat RBC Rel Count 0.0 % % (0.0-0.2) Absolute Neuts (auto) 3.94 10^3/uL 10^3/uL (1.70-6.50) Absolute Lymphs (auto) 4.23 10^3/uL H 10^3/uL (1.00-3.00) Absolute Monos (auto) 0.60 10^3/uL 10^3/uL (0.30-0.80) Absolute Eos (auto) 0.33 10^3/uL 10^3/uL (0.03-0.40) Absolute Basos (auto) 0.06 10^3/uL 10^3/uL (0.02-0.10) Absolute Nucleated RBC 0.00 10^3/uL 10^3/uL (0-0.01) Immature Gran % 0.3 % % (0.0-1.1) Immature Gran # 0.03 10^3/uL 10^3/uL (0.00-0.10) Platelet Estimate INCREASED H (ADEQ) Microcytic Cells 1+ H Smear Review By Pending Sodium 139 mEq/L mEq/L (135-145) Potassium 4.6 mEq/L mEq/L (3.3-5.0) Chloride 103 mEq/L mEq/L (97-110) Carbon Dioxide 25 mEq/l mEq/l (22-31) Anion Gap 11 mEq/L mEq/L (8-16) BUN 11 mg/dL mg/dL (7-23) Creatinine 0.9 mg/dL mg/dL (0.6-1.0) Estimated GFR > 60 Glucose 91 mg/dL mg/dL (70-100) Calcium 9.6 mg/dL mg/dL (8.5-10.4) Total Bilirubin 0.3 mg/dL mg/dL (0.1-1.4) Conjugated Bilirubin 0.1 mg/dL mg/dL (0.0-0.5) Unconjugated Bilirubin 0.2 mg/dL mg/dL (0.0-1.1) AST 30 IU/L IU/L (14-46) ALT 46 IU/L IU/L (9-52) Alkaline Phosphatase 294 IU/L H IU/L (38-126) Total Protein 7.8 g/dL g/dL (6.3-8.2) Albumin 4.0 g/dL g/dL (3.5-5.0) Lipase 151 IU/L IU/L (23-300) Beta HCG, Qual NEGATIVE Medications Given: Discontinued Medications Dicyclomine HCl (Bentyl) 20 mg PO EDNOW ONE Stop: 04/17/18 16:07 Last Admin: 04/17/18 16:14 Dose: 20 mg Sodium Chloride (Ns) 1,000 mls @ 0 mls/hr IV EDNOW ONE; Wide Open PRN Reason: Protocol Stop: 04/17/18 16:07 Last Admin: 04/17/18 16:13 Dose: 1,000 mls Ketorolac Tromethamine (Toradol) 15 mg IVP EDNOW ONE Stop: 04/17/18 16:59 Last Admin: 04/17/18 16:58 Dose: 15 mg Departure - Departure Disposition: Home, Routine, Self-Care Clinical Impression: IBS (irritable bowel syndrome) Qualifiers: Irritable bowel syndrome type: with diarrhea Qualified Code(s): K58.0 - Irritable bowel syndrome with diarrhea Condition: Good Instructions: Irritable Bowel Syndrome (ED) Additional Instructions: Consume a minimum of 8-10 glasses of water or electrolyte fluid replacement drinks that include Gatorade, Powerade, Pedialyte. Eat a bland diet for the next 48 hours and then slowly advance as tolerated. Take Bentyl to 3 times a day as needed for GI distress. Keep of food journal and document intolerances. Keep follow-up appointment with Gastroenterology tomorrow. Referrals: PCP Not In,Dictionary [Medical Doctor] - 04/18/18 (Gastroenterology) Prescriptions: Dicyclomine [Bentyl 20 MG (*)] 20 mg PO QID PRN #28 tab PRN Reason: Gi Distress
[2018-04-17] MEDS ORDERED: NS 1,000 ML IV ONE (16:06)
[2018-04-17] MEDS ORDERED: DICYCLOMINE 10 MG CAP PO ONE (16:06)
[2018-04-17 16:13] LABS: PLATELET COUNT 520 10^3/uL (150-400)
[2018-04-17] MEDS ORDERED: IOPAMIDOL (ISOVUE-300) 100 ML BTL ONE (16:46)
[2018-04-17] MEDS ORDERED: KETOROLAC 15 MG/1 ML SDV ONE (16:56)
[2018-04-17] MEDS ORDERED: KETOROLAC 15 MG/1 ML SDV IVP ONE (16:58)
[2018-04-17 17:01] VITALS: BP 106/85
== END 2018-04-17 17:55 | disposition home or self-care (01) ==
LOC: EDUNIT# → SUPCPDRO 15:43
DX: K58.0 Irritable bowel syndrome with diarrhea (principal); N83.202 Unspecified ovarian cyst, left side; Z87.891 Personal history of nicotine dependence
CPT/HCPCS: 96374; J1885; Q9967

== ENCOUNTER 2018-04-18 02:11 | Emergency (ER) | payer MEDICAID ==
[2018-04-18] MEDS ORDERED: FAMOTIDINE 20 MG/2 ML SDV IVP ONE (02:46)
[2018-04-18] MEDS ORDERED: NS 1,000 ML IV ONE (02:46)
[2018-04-18] MEDS ORDERED: KETOROLAC 15 MG/1 ML SDV IVP ONE (02:46)
--- NOTE | 2018-04-18 02:46 | EDPHY ---
H & P Stated Complaint: here earlier, abdo pain worse Time Seen by Provider: 04/18/18 02:37 HPI/ROS: Chief Complaint: Abdominal pain HPI: 37-year-old woman who is been having diarrhea for the last few days this presenting with severe worsening abdominal pain. She is scheduled to see a welfare administrator later today. She was seen in the emergency department yesterday and had a CT scan which was unremarkable. She also had an ultrasound done yesterday by [facility] which she also reports was normal. She has had some nausea vomiting. No blood in her vomit. No coffee grounds. No blood or dark black tarry stools. No fevers or chills. Pain is in her upper central abdomen. Earlier yesterday was right upper abdomen. She is currently being worked up for irritable bowel syndrome. Pain right now is a 6/10. She was started on Imodium yesterday in the symptoms began after she took the Imodium. She also took some Bentyl last night which she believes is also contributing to her discomfort. ROS: 10 systems were reviewed and were negative except those elements noted in the HPI. PMH: Irritable bowel syndrome Social History: No smoking, no alcohol, no recreational drug use Family History: non-contributory Physical Exam: Gen: Awake, Alert, No Distress HEENT: Nose: no rhinorrhea Eyes: PERRLA, EOMI Mouth: Moist mucosa Neck: Supple, no JVD Chest: nontender, lungs clear to auscultation Heart: S1, S2 normal, no murmur Abd: Soft, mild epigastric tenderness, no guarding Back: no CVA tenderness, no midline tenderness Ext: no edema, non-tender Skin: no rash Neuro: CN II-XII intact, Sensation grossly intact, Strength 5/5 in bilateral upper and lower extremities - Personal History LMP (Females 10-55): 15-21 Days Ago Current Tetanus/Diphtheria Vaccine: Yes Current Tetanus Diphtheria and Acellular Pertussis (TDAP): Yes - Medical/Surgical History Hx Asthma: No Hx Chronic Respiratory Disease: No Hx Diabetes: No Hx Cardiac Disease: No Hx Renal Disease: No Hx Cirrhosis: No Hx Alcoholism: No Hx HIV/AIDS: No Hx Splenectomy or Spleen Trauma: No Other PMH: anxiety attacks. seizure? gi issues. migraines - Social History Smoking Status: Former smoker Constitutional: Initial Vital Signs Temperature (C) 36.7 C 04/18/18 02:14 Heart Rate 97 04/18/18 02:14 Respiratory Rate 18 04/18/18 02:14 Blood Pressure 128/84 H 04/18/18 02:14 O2 Sat (%) 97 04/18/18 02:14 O2 Delivery Mode Room Air Allergies/Adverse Reactions: Penicillins Allergy (Verified 04/18/18 02:13) Home Medications: Medication Instructions Recorded Citalopram 12/15/17 Dicyclomine [Bentyl 20 MG (*)] 20 mg PO QID PRN #28 tab 04/17/18 Lorazepam 04/17/18 Maxalt 04/17/18 Medical Decision Making ED Course/Re-evaluation: I have reviewed the patient's laboratory evaluations from yesterday. They are unremarkable. Will give her Toradol and Pepcid and re-evaluate. 0330 patient's pain has resolved after IV Pepcid and Toradol. She is tolerating p.o. And comfortable. Repeat examination is a soft benign abdomen. Will discharge to home with plans for her to follow up with her welfare administrator at her scheduled appointment later today. - Data Points Medications Given: Discontinued Medications Famotidine (Pepcid) 20 mg IVP EDNOW ONE Stop: 04/18/18 02:47 Last Admin: 04/18/18 03:00 Dose: 20 mg Sodium Chloride (Ns) 1,000 mls @ 0 mls/hr IV ONCE ONE; Wide Open PRN Reason: Protocol Stop: 04/18/18 02:47 Last Admin: 04/18/18 02:57 Dose: 1,000 mls Ketorolac Tromethamine (Toradol) 15 mg IVP EDNOW ONE Stop: 04/18/18 02:47 Last Admin: 04/18/18 02:57 Dose: 15 mg Departure - Departure Disposition: Home, Routine, Self-Care Clinical Impression: Abdominal pain Condition: Good Instructions: Abdominal Pain (ED) Additional Instructions: Follow up with your welfare administrator today as scheduled. Return to the emergency department for increasing abdominal pain, nausea vomiting, fevers, chills, or any other concerns. Referrals: Earnestine Berry PA [Primary Care Provider] - As per Instructions
[2018-04-18 03:54] VITALS: BP 114/72
== END 2018-04-18 03:54 | disposition home or self-care (01) ==
DX: R10.9 Unspecified abdominal pain (principal); E86.9 Volume depletion, unspecified; Z87.891 Personal history of nicotine dependence; Z88.0 Allergy status to penicillin
CPT/HCPCS: 96374; J1885

== ENCOUNTER 2018-04-23 00:10 | Emergency (ER) | payer MEDICAID ==
[2018-04-23] MEDS ORDERED: NS 1,000 ML IV ONE (00:43)
[2018-04-23] MEDS ORDERED: FAMOTIDINE 20 MG/NACL 50 ML IV ONE (00:43)
[2018-04-23] MEDS ORDERED: DICYCLOMINE 10 MG CAP PO ONE (00:43)
[2018-04-23] MEDS ORDERED: KETOROLAC 15 MG/1 ML SDV IVP ONE (00:43)
--- NOTE | 2018-04-23 00:49 | EDPHY ---
H & P Stated Complaint: abd pain cramping Time Seen by Provider: 04/23/18 00:22 HPI/ROS: HPI The patient presents with abdominal pain which has been present intermittently for last several weeks, currently awaiting colonoscopy later this week. Pain began at about 9:00 p.m. Tonight. She ate a dinner of chicken and rice at 8:00 p.m.. The pain started slowly and got progressively worse. She describes it as a sharp and cramping pain throughout her abdomen associated with bloating. It is associated with nausea without vomiting. Her last bowel movement was at noon today and was of formed stool. She has not had any fevers or chills. She was in the emergency department on April 17 and . She has undergone CT scan of her abdomen and ultrasound of her with normal results to date.. REVIEW OF SYSTEMS 10 systems were reviewed and negative with the exception of the elements mentioned in the history of present illness. PMHx: History of migraine headache Soc Hx: No alcohol use recently PHYSICAL General Appearance: Alert, no distress Eyes: Pupils equal and round no pallor or injection ENT, Mouth: Mucous membranes moist Respiratory: There are no retractions, lungs are clear to auscultation Cardiovascular: Regular rate and rhythm Gastrointestinal: Abdomen is soft and mildly tender throughout all quadrants without rebound or guarding, no masses, bowel sounds normal Neurological: A&O, moves all extremities Skin: Warm and dry, no rashes Musculoskeletal: Neck is supple non tender Extremities: symmetrical, full range of motion Psychiatric: Patient is oriented X 3, there is no agitation Source: Patient Exam Limitations: No limitations - Personal History LMP (Females 10-55): Now Current Tetanus/Diphtheria Vaccine: Yes Current Tetanus Diphtheria and Acellular Pertussis (TDAP): Yes - Medical/Surgical History Hx Asthma: No Hx Chronic Respiratory Disease: No Hx Diabetes: No Hx Cardiac Disease: No Hx Renal Disease: No Hx Cirrhosis: No Hx Alcoholism: No Hx HIV/AIDS: No Hx Splenectomy or Spleen Trauma: No Other PMH: anxiety attacks. seizure? gi issues. migraines - Social History Smoking Status: Former smoker Constitutional: Initial Vital Signs Temperature (C) 36.6 C 04/23/18 00:14 Heart Rate 100 04/23/18 00:14 Respiratory Rate 18 04/23/18 00:14 Blood Pressure 127/90 H 04/23/18 00:14 O2 Sat (%) 97 04/23/18 00:14 O2 Delivery Mode Room Air Allergies/Adverse Reactions: Penicillins Allergy (Verified 04/18/18 02:13) Home Medications: Medication Instructions Recorded Citalopram 12/15/17 Lorazepam 04/17/18 Maxalt 04/17/18 Medical Decision Making Differential Diagnosis: 37-year-old female with intermittent abdominal pain presents with another episode tonight starting at about 9:00 p.m. Typical of previous episodes. I have reviewed her chart from previous visits and it does seem that she is improved before with Toradol and famotidine which I will order for her. In the emergency department, labs were checked. She does have a leukocytosis, anemia which is slightly worse than previous labs suggest, elevated alkaline phosphatase. Her pain continued after above treatment and that she was given a dose of Dilaudid which caused complete resolution in her symptoms. She was monitored for several hour he says here without any recurrence of her pain. The cause of her pain is unclear, she has follow up with the colonoscopy in 3 days. She has had normal imaging to date, however I do feel there must be some sort of underlying pathology given her lab abnormalities. I will discharge her from the emergency department. Differential diagnosis includes colitis, gastroenteritis, gastritis. - Data Points Laboratory Results: Laboratory Results 04/23/18 00:31 04/23/18 00:31 Medications Given: Discontinued Medications Hydrocodone Bitart/Acetaminophen (Nikolski 5/325mg Prepack#6) 1 btl TAKEHOME EDNOW ONE Stop: 04/23/18 02:57 Last Admin: 04/23/18 03:06 Dose: 1 btl Hydrocodone Bitart/Acetaminophen ([place] 5/325) 1 tab PO EDNOW ONE Stop: 04/23/18 03:06 Last Admin: 04/23/18 03:07 Dose: 1 tab Dicyclomine HCl (Bentyl) 20 mg PO EDNOW ONE Stop: 04/23/18 00:44 Last Admin: 04/23/18 00:50 Dose: 20 mg Hydromorphone HCl (Dilaudid) 0.5 mg IVP EDNOW ONE Stop: 04/23/18 01:16 Last Admin: 04/23/18 01:16 Dose: 0.5 mg Sodium Chloride (Ns) 1,000 mls @ 0 mls/hr IV EDNOW ONE; Wide Open PRN Reason: Protocol Stop: 04/23/18 00:44 Last Admin: 04/23/18 00:50 Dose: 1,000 mls Famotidine/Sodium Chloride (Pepcid 20 Mg (Premix)) 50 mls @ 200 mls/hr IV EDNOW ONE Stop: 04/23/18 00:57 Last Admin: 04/23/18 00:50 Dose: 50 mls Ketorolac Tromethamine (Toradol) 15 mg IVP EDNOW ONE Stop: 04/23/18 00:44 Last Admin: 04/23/18 00:50 Dose: 15 mg Departure - Departure Disposition: Home, Routine, Self-Care Clinical Impression: Abdominal pain Condition: Good Instructions: Hydrocodone/Acetaminophen (By mouth), Acute Abdominal Pain (ED) Additional Instructions: Please return to the emergency department if your worse in any way. Referrals: Earnestine Berry, PA [Primary Care Provider] - As per Instructions Earnestine Mooney, PAC [Physician Snowboarding Instructor] - As per Instructions
[2018-04-23 01:00] LABS: PLATELET COUNT 491 10^3/uL (150-400)
[2018-04-23] MEDS ORDERED: HYDROmorphONE/DILAUDID 1 MG/ML INJ ONE (01:14)
[2018-04-23] MEDS ORDERED: HYDROmorphONE/DILAUDID 2 MG/ML INJ IVP ONE (01:15)
[2018-04-23 02:49] VITALS: BP 101/61
[2018-04-23] MEDS ORDERED: HYDROCOD/APAP 5/325 PREPACK#6 BTL TAKEHOME ONE (02:56)
[2018-04-23] MEDS ORDERED: HYDROCODONE/APAP 5/325 TAB PO ONE (03:05)
== END 2018-04-23 03:12 | disposition home or self-care (01) ==
DX: R10.9 Unspecified abdominal pain (principal); E86.9 Volume depletion, unspecified; Z87.891 Personal history of nicotine dependence
CPT/HCPCS: 96374; J1170; J1885

== ENCOUNTER 2018-05-07 02:44 | Emergency (ER) | payer MEDICAID ==
--- NOTE | 2018-05-07 02:46 | EDPHY ---
H & P Source: Patient - Medical/Surgical History Hx Asthma: No Hx Chronic Respiratory Disease: No Hx Diabetes: No Hx Cardiac Disease: No Hx Renal Disease: No Hx Cirrhosis: No Hx Alcoholism: No Hx HIV/AIDS: No Hx Splenectomy or Spleen Trauma: No Other PMH: anxiety attacks. seizure? gi issues. migraines - Social History Smoking Status: Former smoker Time Seen by Provider: 05/07/18 02:46 HPI/ROS: HPI CHIEF COMPLAINT: Multiple complaints HISTORY OF PRESENT ILLNESS: 37-year-old female, presents emergency room with nausea vomiting abdominal pain and diarrhea. Patient states that she recently had a colonoscopy was diagnosed with ulcerative colitis. She presents emergency room multiple complaints. She states this evening she has had worsening nausea vomiting and diarrhea. Watery stools. States sometimes she has bright red blood in it. No fever. Does complain of diffuse abdominal cramping. Additionally complains of sore throat, bilateral ear pain and states that she is having a migraine headache. She states that her migraine headache started after she had multiple episodes of diarrhea nausea vomiting. She denies any chest pain or shortness of breath. Old records reviewed. Past Medical History: Previous medical history includes anxiety, migraine headaches, IBS, frequent ER visit for abdominal pain Past Surgical History: No recent surgery Social History: Denies daily use drugs alcohol tobacco. Student. Family History: Noncontributory ROS REVIEW OF SYSTEMS: 10 Systems were reviewed and negative with the exception of the elements mentioned in the history of present illness. Exam Constitutional nontoxic no acute distress triage nursing summary reviewed, vital signs reviewed, awake/alert. Eyes normal conjunctivae and sclera, EOMI, PERRLA. HENT normal inspection, atraumatic, moist mucus membranes, no epistaxis, neck supple/ no meningismus, no raccoon eyes. Respiratory clear to auscultation bilaterally, normal breath sounds, no respiratory distress, no wheezing. Cardiovascular rate normal, regular rhythm, no murmur, no edema, distal pulses normal. Gastrointestinal mild tender palpation diffusely, no peritoneal signs, no rebound, no guarding, normal bowel sounds, no distension, no pulsatile mass. Genitourinary no CVA tenderness. Musculoskeletal no midline vertebral tenderness, full range of motion, no calf swelling, no tenderness of extremities, no meningismus, good pulses, neurovascularly intact. Skin pink, warm, & dry, no rash, skin atraumatic. Neurologic awake, alert and oriented x 3, AAOx3, moves all 4 extremities equally, motor intact, sensory intact, CN II-XII intact, normal cerebellar, normal vision, normal speech. Psychiatric normal mood/affect. Heme/Lymph/Immune no lymphadenopathy. Differential diagnosis includes but is not limited to and in no particular order : Bowel obstruction, appendicitis, gallbladder disease, diverticulitis, colitis , enteritis, perforated viscus, gastritis, GERD, esophagitis, urinary tract infection, pyelonephritis, kidney stones Medical Decision Making: Plan for this patient IV establishment IV fluid bolus 2 L normal saline, IV Phenergan 12.5 mg IV bolus for nausea, check basic electrolytes, CBC, given her abdominal pain, bloody stools, will proceed with CT scan abdomen pelvis with IV contrast re-evaluate. Re-evaluation: CT scan abdomen pelvis with IV contrast negative for acute inflammatory process. Called to me by Dr. Manuel. 0530: Patient re-evaluated blood work has been reviewed. Hemoglobin 9.9. Stable from last time. CT scan shows no acute inflammatory process. On re-examination at this time abdomen is soft. She is not vomiting she is asking to drink something however she reports that she is shaking. Feels anxious. I have ordered her 1 mg IV Ativan. Will re-evaluate. 0615: Patient received 1 mg IV Ativan and she is resting comfortably at this time. 0700: Patient sleepy, needs time to metabolize ativan. Can go home after medications metabolize. Patient is sleepy after IV Ativan. Will need time to metabolize the medication. Once she is more awake stable gait answers question appropriately she can be discharged safely from the ER. I do recommend she follows up with her GI specialist. As well as primary care doctor. Return precautions discussed with her she understands (Andi Diaz) Constitutional: Initial Vital Signs Temperature (C) 36.7 C 05/07/18 02:48 Heart Rate 100 05/07/18 02:48 Respiratory Rate 16 05/07/18 02:48 Blood Pressure 130/85 H 05/07/18 02:48 O2 Sat (%) 98 05/07/18 02:48 O2 Delivery Mode Room Air Allergies/Adverse Reactions: Penicillins Allergy (Verified 05/07/18 02:50) promethazine [From Phenergan] Allergy (Verified 05/07/18 04:09) Other-Enter Comments Home Medications: Medication Instructions Recorded Citalopram 12/15/17 Lorazepam 04/17/18 Maxalt 04/17/18 Medical Decision Making ED Course/Re-evaluation: Patient's care was turned over to me by Dr. Diaz at 7:00 a.m.. I re- evaluated the patient at 7:15 a.m.. The current plan is after the Ativan to let her wake up a little bit more and discharge the patient. She was given Ativan for some twitching or spasms. Patient has occasional leg movement that does somewhat appear to be purposeful and not neurologic in etiology. The family is again offered admission 7:40 a.m. patient is stable. She and her family would like to go home and feels safe for discharge. There are encouraged to follow up with their regular healthcare provider and encouraged to return at any time (Nehemias Turner) - Data Points Laboratory Results: Laboratory Results 05/07/18 03:30 05/07/18 03:30 05/07/18 05/07/18 05/07/18 03:30 03:30 03:30 WBC RBC Hgb Hct MCV MCH MCHC RDW Plt Count MPV Neut % (Auto) Lymph % (Auto) [place] % (Auto) Eos % (Auto) Baso % (Auto) Nucleat RBC Rel Count Absolute Neuts (auto) Absolute Lymphs (auto) Absolute Monos (auto) Absolute Eos (auto) Absolute Basos (auto) Absolute Nucleated RBC Immature Gran % Immature Gran # PT INR APTT Sodium 138 mEq/L mEq/L (135-145) Potassium 4.1 mEq/L mEq/L (3.3-5.0) Chloride 107 mEq/L mEq/L (97-110) Carbon Dioxide 21 mEq/l L mEq/l (22-31) Anion Gap 10 mEq/L mEq/L (6-14) BUN 7 mg/dL mg/dL (7-23) Creatinine 0.7 mg/dL mg/dL (0.6-1.0) Estimated GFR > 60 Glucose 89 mg/dL mg/dL (70-100) Calcium 9.3 mg/dL mg/dL (8.5-10.4) Total Bilirubin 0.3 mg/dL mg/dL (0.1-1.4) Conjugated Bilirubin 0.1 mg/dL mg/dL (0.0-0.5) Unconjugated Bilirubin 0.2 mg/dL mg/dL (0.0-1.1) AST 32 IU/L IU/L (14-46) ALT 36 IU/L IU/L (9-52) Alkaline Phosphatase 210 IU/L H IU/L (38-126) Total Protein 7.1 g/dL g/dL (6.3-8.2) Albumin 3.6 g/dL g/dL (3.5-5.0) Lipase 126 IU/L IU/L (23-300) Beta HCG, Qual NEGATIVE Urine Color PALE YELLOW Urine Appearance CLEAR Urine pH 6.0 (5.0-7.5) Ur Specific [place] 1.001 L (1.002-1.030) Urine Protein NEGATIVE (NEGATIVE) Urine Ketones NEGATIVE (NEGATIVE) Urine Blood NEGATIVE (NEGATIVE) Urine Nitrate NEGATIVE (NEGATIVE) Urine Bilirubin NEGATIVE (NEGATIVE) Urine Urobilinogen NEGATIVE EU EU (0.2-1.0) Ur Leukocyte Esterase NEGATIVE (NEGATIVE) Urine Glucose NEGATIVE (NEGATIVE) 05/07/18 05/07/18 03:30 03:30 WBC 9.64 10^3/uL H 10^3/uL (3.80-9.50) RBC 4.82 10^6/uL 10^6/uL (4.18-5.33) Hgb 9.9 g/dL L g/dL (12.6-16.3) Hct 34.1 % L % (38.0-47.0) MCV 70.7 fL L fL (81.5-99.8) MCH 20.5 pg L pg (27.9-34.1) MCHC 29.0 g/dL L g/dL (32.4-36.7) RDW 20.9 % H % (11.5-15.2) Plt Count 499 10^3/uL H 10^3/uL (150-400) MPV 9.2 fL fL (8.7-11.7) Neut % (Auto) 51.1 % % (39.3-74.2) Lymph % (Auto) 36.9 % % (15.0-45.0) Lam[place] % (Auto) 7.8 % % (4.5-13.0) Eos % (Auto) 3.0 % % (0.6-7.6) Baso % (Auto) 0.8 % % (0.3-1.7) Nucleat RBC Rel Count 0.0 % % (0.0-0.2) Absolute Neuts (auto) 4.92 10^3/uL 10^3/uL (1.70-6.50) Absolute Lymphs (auto) 3.56 10^3/uL H 10^3/uL (1.00-3.00) Absolute Monos (auto) 0.75 10^3/uL 10^3/uL (0.30-0.80) Absolute Eos (auto) 0.29 10^3/uL 10^3/uL (0.03-0.40) Absolute Basos (auto) 0.08 10^3/uL 10^3/uL (0.02-0.10) Absolute Nucleated RBC 0.00 10^3/uL 10^3/uL (0-0.01) Immature Gran % 0.4 % % (0.0-1.1) Immature Gran # 0.04 10^3/uL 10^3/uL (0.00-0.10) PT 14.1 SEC SEC (12.0-15.0) INR 1.07 (0.83-1.16) APTT 26.2 SEC SEC (23.0-38.0) Sodium Potassium Chloride Carbon Dioxide Anion Gap BUN Creatinine Estimated GFR Glucose Calcium Total Bilirubin Conjugated Bilirubin Unconjugated Bilirubin AST ALT Alkaline Phosphatase Total Protein Albumin Lipase Beta HCG, Qual Urine Color Urine Appearance Urine pH Ur Specific [place] Urine Protein Urine Ketones Urine Blood Urine Nitrate Urine Bilirubin Urine Urobilinogen Ur Leukocyte Esterase Urine Glucose Medications Given: Discontinued Medications Diphenhydramine HCl (Benadryl Injection) 25 mg IVP EDNOW ONE Stop: 05/07/18 03:28 Last Admin: 05/07/18 03:38 Dose: 25 mg Diphenhydramine HCl (Benadryl Injection) 25 mg IVP EDNOW ONE Stop: 05/07/18 04:04 Last Admin: 05/07/18 04:04 Dose: 25 mg Sodium Chloride (Ns) 1,000 mls @ 0 mls/hr IV EDNOW ONE; Wide Open PRN Reason: Protocol Stop: 05/07/18 03:27 Last Admin: 05/07/18 03:38 Dose: 1,000 mls Sodium Chloride (Ns) 1,000 mls @ 0 mls/hr IV EDNOW ONE; Wide Open PRN Reason: Protocol Stop: 05/07/18 03:27 Last Admin: 05/07/18 03:38 Dose: 1,000 mls Lorazepam (Ativan Injection) 0.5 mg IVP EDNOW ONE Stop: 05/07/18 04:38 Last Admin: 05/07/18 04:40 Dose: 0.5 mg Lorazepam (Ativan Injection) 1 mg IVP EDNOW ONE Stop: 05/07/18 05:41 Last Admin: 05/07/18 05:42 Dose: 1 mg Promethazine HCl (Phenergan) 12.5 mg IVP ONCE ONE Stop: 05/07/18 03:28 Last Admin: 05/07/18 03:38 Dose: 12.5 mg Departure - Departure Disposition: Home, Routine, Self-Care Clinical Impression: Anxiety Abdominal pain Qualifiers: Abdominal location: generalized Qualified Code(s): R10.84 - Generalized abdominal pain Condition: Good Instructions: Acute Abdominal Pain (ED), Anxiety (ED) Additional Instructions: Return for worsening symptoms Follow-up with Earnestine Berry for further evaluation in the next 1-2 days Referrals: Earnestine Berry PA [Primary Care Provider] - 1-2 days without fail
[2018-05-07] MEDS ORDERED: NS 1,000 ML IV ONE ×2 (03:26)
[2018-05-07] MEDS ORDERED: PROMETHAZINE HCL 25 MG/ML INJ IVP ONE (03:27)
[2018-05-07] MEDS ORDERED: IOPAMIDOL (ISOVUE-300) 100 ML BTL ONE (03:33)
[2018-05-07 03:43] LABS: PLATELET COUNT 499 10^3/uL (150-400)
[2018-05-07 03:54] LABS: INR 1.07 (0.83-1.16); PROTIME(PATIENT) 14.1 SEC (12.0-15.0)
[2018-05-07] MEDS ORDERED: LORazepam 2 MG/ML INJ IVP ONE ×2 (04:37→05:40)
[2018-05-07] MEDS ORDERED: LORazepam 2 MG/ML INJ ONE (04:39)
[2018-05-07 07:40] VITALS: BP 96/79
== END 2018-05-07 07:44 | disposition home or self-care (01) ==
DX: R10.84 Generalized abdominal pain (principal); R11.2 Nausea with vomiting, unspecified; K92.1 Melena; R19.7 Diarrhea, unspecified; F41.9 Anxiety disorder, unspecified; E86.9 Volume depletion, unspecified; G43.909 Migraine, unspecified, not intractable, without status migrainosus; Z87.19 Personal history of other diseases of the digestive system
CPT/HCPCS: 96374; J1200; J2060; J2550; Q9967